=== PATIENT | male | born 1960 | race African-American/Black ===

== ENCOUNTER → 2017-11-06 | Outpatient (CLI) | payer MEDICARE ==
[2017-11-06 12:00] LABS: AMPHET/METH SCREEN,URINE NEGATIVE (NEGATIVE); BENZODIAZEPINES SCREEN,URINE NEGATIVE (NEGATIVE); CANNABINOID SCREEN,URINE NEGATIVE (NEGATIVE); COCAINE SCREEN,URINE NEGATIVE (NEGATIVE); METHADONE SCREEN, URINE NEGATIVE (NEGATIVE); OPIATE SCREEN,URINE NEGATIVE (NEGATIVE)
[2017-11-06 12:01] LABS: PHENCYCLIDINE SCREEN,URINE NEGATIVE (NEGATIVE)
[2017-11-06 12:19] LABS: ALBUMIN 3.7 g/dL (3.4-5.0); BILIRUBIN,TOTAL 0.5 mg/dL (0.1-1.0); TOTAL PROTEIN, SERUM 7.3 g/dL (6.4-8.2)
[2017-11-06 12:23] LABS: BILIRUBIN,DIRECT 0.1 mg/dL (0.00-0.20)
[2017-11-06 12:46] LABS: APPEARANCE,URINE CLEAR (CLEAR); BILIRUBIN,URINE NEGATIVE (NEGATIVE); GLUCOSE, URINE (UA) NEGATIVE (NEGATIVE); KETONES,URINE NEGATIVE (NEGATIVE); LEUKOCYTE ESTERASE ,URINE NEGATIVE (NEGATIVE); NITRATE,URINE NEGATIVE (NEGATIVE); OCCULT BLOOD,URINE NEGATIVE (NEGATIVE); PH,URINE 6.5 (5.0-8.0); PROTEIN,URINE NEGATIVE (NEGATIVE); UROBILINOGEN,URINE 0.2 mg/dL (<=1.0)
== END | disposition home or self-care (01) ==
LOC: MSR 09:26
PROVIDERS: ATTEND Physician Assistant
DX: M11.262 Other chondrocalcinosis, left knee (principal); M25.862 Other specified joint disorders, left knee; Z96.651 Presence of right artificial knee joint

== ENCOUNTER → 2019-02-11 | Outpatient (CLI) | payer MEDICARE | END | disposition home or self-care (01) | LOC: RADMN 13:45 | PROVIDERS: ATTEND Pain Medicine Interventional Pain Medicine | DX: M48.07 Spinal stenosis, lumbosacral region (principal); M43.16 Spondylolisthesis, lumbar region; M51.27 Other intervertebral disc displacement, lumbosacral region | CPT/HCPCS: 72148 ==

== ENCOUNTER → 2019-09-30 | Outpatient (CLI) | payer MEDICARE, MEDICAID | END | disposition home or self-care (01) | LOC: RADPV 11:54 | PROVIDERS: ATTEND Family Medicine | DX: R05 Cough (principal) ==